=== PATIENT | female | born 1940 | race Caucasian/White ===

== ENCOUNTER 2021-09-06 08:11 | Inpatient (IN) ==
[2021-09-06] MEDS ORDERED: ACETAMINOPHEN 325 MG TABLET PO PRN (10:27)
[2021-09-06] MEDS ORDERED: SENNOSIDES 1 TABLET PO PRN (10:27)
[2021-09-06] MEDS ORDERED: LOPERAMIDE 2 MG CAPSULE PO PRN (10:27)
[2021-09-06] MEDS ORDERED: IPRATROPIUM/ALBUTEROL 3 ML AMPUL.NEB NEB PRN (10:27)
[2021-09-06] MEDS ORDERED: DEXTROSE 31 GM ORAL.SUSP PO PRN (10:27)
[2021-09-06] MEDS ORDERED: DEXTROSE 50% 50 ML VIAL IV PRN (10:27)
[2021-09-06] MEDS ORDERED: ONDANSETRON 4 MG/2 ML VIAL IV PRN (10:27)
[2021-09-06] MEDS ORDERED: LACTULOSE 20 GM/30 ML ORAL.SOL PO PRN (10:27)
--- NOTE | 2021-09-06 10:34 | Internal Med History&Physical ---
HPI History of Present Illness Patient information: Note initiated : 09/06/21 at 10:31 am Service Date, if different from initiated Date: [] Patient: Sarah Roberts 81 y/o F admitted on 09/06/21 for CHF. Chief Complaint: [shortness of breath] Chief complaint: shortness of breath History of present illness: Ms. Robetrs is a 81 year old F history of severe aortic stenosis, grade 1 diastolic CHF, s/p cardiac pacemaker placement, type 2 diabetes mellitus, essential hypertension, mixed dyslipidemia, chronic disease stage III with anemia, presenting with 1 week history of increasing degree of shortness of breath and dyspnea on exertions. She is complaining of 1 week history of increasing degree of shortness of breath and dyspnea on exertions with 10 feeds. She denies any chest pain or palpitations. She is committing of anxiety. She is committing of 5 pounds weight gain over the past 3 weeks. She is complaining of orthopnea with 2 pillows. She is committing of mild bilateral leg swellings. She presented to [facility] ED where she was being started on BiPAP as well as nitroglycerin drip. The diagnosis of CHF exacerbations and flash pulmonary edema were made based on the ground of elevated serum BNP as well as chest x-ray finding with pulmonary edema. Admission request was made to our hospital due to bed availability in the [id number]. Deena negative, [place] pending. Constitutional Constitutional: Present weakness; Absent chills, excessive sweating, fatigue or fever(s) EENT Eyes: Absent blurry vision, change in vision, loss of vision or other visual disturbances Ears: Absent decreased hearing or tinnitus Nose, mouth and throat: Absent abnormal hearing, dry mouth, headache(s), nasal congestion or sore throat Cardiovascular Cardiovascular: Present dyspnea, dyspnea on exertion, leg edema, orthopnea and pedal edema; Absent chest pain, chest pain at rest, edema, irregular heart rhythm or palpatations Respiratory Respiratory: Present dyspnea on exertion; Absent cough, dyspnea or wheezing Gastrointestinal Gastrointestinal: Absent abdominal pain, constipation, diarrhea, nausea or vomiting Musculoskeletal Musculoskeletal: Absent back pain, deformity, limited range of motion, muscle cramps, muscle weakness or numbness Integumentary Integumentary: Absent lesions, rash or wounds Neurological Neurological: Absent focal weakness, headache(s) or numbness Psychiatric Psychiatric: Absent anxiety, depression or hallucinations PFSH PFSH All Active Problems (Updated 09/06/21 @ 10:39 by Glynn Conner MD) Diastolic CHF, acute on chronic (Acute) Severe aortic stenosis (Acute) Anemia due to stage 3b chronic kidney disease (Chronic) Hyperparathyroidism (Chronic) Annual physical exam (Acute) Medicare annual wellness visit, initial (Acute) Left cervical radiculopathy (Acute) Localized edema due to fluid overload (Chronic) Chronic kidney disease (CKD) stage G3b/A1, moderately decreased glomerular filtration rate (GFR) between 30-44 mL/min/1.73 square meter and albuminuria creatinine ratio less than 30 mg/g (Chronic) DMII (diabetes mellitus, type 2) (Acute) Tinea pedis (Acute) History of esophagogastroduodenoscopy (Chronic ~01/25/20) Syncope and collapse (Acute) Vomiting (Acute) Hypotension (Acute) Aortic stenosis (Acute) RBBB (right bundle branch block) (Acute) Anemia (Acute) Hypertension in stage 3 chronic kidney disease due to type 2 diabetes mellitus (Chronic) Hypertension, essential (Chronic) Heart murmur (Chronic) Hyperlipidemia (Chronic) Anemia, blood loss (Chronic) Obesity (Chronic) Dysmetabolic syndrome X (Chronic) Arthritis (Chronic) Medical History Anemia, blood loss 5 ulcers 11/2018, Dr. Chacon. Annual physical exam Arthritis DM type 2 (diabetes mellitus, type 2) DMII (diabetes mellitus, type 2) Dysmetabolic syndrome X Heart murmur moderate aortic stenosis Hyperlipidemia Hypertension in stage 3 chronic kidney disease due to type 2 diabetes mellitus Hypertension, essential Left cervical radiculopathy Medicare annual wellness visit, initial Obesity Prediabetes Radial head fracture, closed Tinea pedis Surgical History History of esophagogastroduodenoscopy (~01/25/20) Hx of colonoscopy (12/25/14) Hx of hysterectomy S/P cataract surgery S/P knee replacement Family History brother Cardiovascular disease mother Cerebrovascular accident (CVA) Macular degeneration none listed Depression father Chronic Kidney Disease Social History marital status: frequency: 3-4 times per week smoking status: Never smoker alcohol intake frequency: holiday/special occasion only substance use type: does not use MEDS/ALLERGIES Home Medications and Allergies Home Medications Medication Instructions Recorded Confirmed Type loperamide 2 mg capsule 2 mg PO Q2-4H PRN 11/30/18 09/06/21 History (Anti-Diarrheal (loperamide)) ferrous sulfate 325 mg (65 mg 650 mg PO QDAY tab 02/01/19 09/06/21 History iron) tablet pantoprazole 40 mg tablet,delayed 40 mg PO QDAY 01/27/20 07/30/21 History release blood sugar diagnostic (True #100 each 09/20/20 07/30/21 Rx Metrix Glucose Test Strip) pravastatin 40 mg tablet 40 mg PO QHS #90 tab 03/21/21 07/30/21 Rx amlodipine 10 mg tablet (Norvasc) 10 mg PO QDAY #90 tab 05/02/21 09/06/21 Rx multivitamin 1 tab PO QAM 05/02/21 09/06/21 History torsemide 20 mg tablet 20 mg PO BID #180 tab 05/30/21 07/30/21 Rx alendronate 70 mg tablet (Fosamax) 70 mg PO QWEEK #12 tab 06/11/21 09/06/21 Rx cholecalciferol (vitamin D3) 50 50 mcg PO QDAY #90 tab 08/19/21 09/06/21 Rx mcg (2,000 unit) tablet metformin 500 mg tablet,extended 250 mg PO BID 09/06/21 09/06/21 History release 24 hr Allergies Allergy/AdvReac Type Severity Reaction Status Date / Time Amoxicillin AdvReac Mild headache Verified 07/30/21 08:12 EXAM Constitutional Vitals: Pulse Ox 100 09/06/21 09:47 General appearance: cooperative and no acute distress Head Head exam: Present atraumatic and normocephalic Eye Eye exam: Present EOMI and PERRL ENT ENT exam: Present mucous membranes moist, normal exam and normal external ear exam Additional comments: High flow nasal cannula in place Neck Neck exam: Present normal inspection; Absent lymphadenopathy, tenderness or thyromegaly Respiratory Respiratory exam: Present rhonchi; Absent accessory muscle use, respiratory distress or wheezes Cardiovascular Cardiovascular exam: Present normal rate and rhythm and systolic murmur; Absent JVD Additional comments: Pacemaker in place GI/Abdominal GI/Abdominal exam: Present normal bowel sounds and soft; Absent organomegaly or tenderness Extremities Exam Extremities exam: Present full ROM, normal capillary refill, normal inspection and pedal edema; Absent tenderness Neurological Exam Neurological exam: Present alert, CN II-XII intact and oriented X3; Absent motor sensory deficit Psychiatric Psychiatric exam: Present normal affect and normal mood; Absent anxious or depressed Skin Skin exam: Present dry and intact A/P Assessment and plan (1) Anemia due to stage 3b chronic kidney disease: Status: Chronic (2) DMII (diabetes mellitus, type 2): Status: Acute (3) Chronic kidney disease (CKD) stage G3b/A1, moderately decreased glomerular filtration rate (GFR) between 30-44 mL/min/1.73 square meter and albuminuria creatinine ratio less than 30 mg/g: Status: Chronic (4) Hypertension in stage 3 chronic kidney disease due to type 2 diabetes mellitus: Status: Chronic (5) Hyperlipidemia: Status: Chronic (6) Severe aortic stenosis: Status: Acute (7) Diastolic CHF, acute on chronic: Status: Acute Narrative A/P Narrative: Assessment and Plans: 1. Grade 1 diastolic CHF exacerbation with associated severe aortic stenosis s/p cardiac pacemaker placement: Inpatient PCU with telemetry Strict intake and output Daily weigh 2L/day fluid restriction Supplemental oxygen therapy titrate to achieve spo2>=92% currently at 10L/min Recent 2D echo showing preserved systolic function with LVEF 55-60% with grade 1 diastolic dysfunction Lasix 40mg IV BID Need cardiology follow up to discuss surgical management of the severe aortic stenosis Physical therapy Occupational therapy 2. T2DM: HgA1c Hold Metformin Correctional scale insulin AC HS Accu Chek AC HS Hypoglycemia protocol Diabetic diet 3. Essential HTN: Amlodipine Lasix 40mg IV BID d/c Nitroglycerin drip 4. Mixed dyslipidemia: Continue statin therapy 5. CKD III with associated anemia: Avoid nephrotoxic agents Saline lock CMP and cbc to trend kidney functions and H/H in the morning, respectively Iron panel, folate, and vitamin B12 level GI ppx: not currently indicated DVT ppx: Heparin Code status: Full Prognosis: guarded Disposition: Inpatient PCU with telemetry Time Spent With Patient Time: Total time spent is greater than 50% in coordination of care (as documented) at patient's floor/unit and/or counseling patient: Total time spent with greater than 50% in coordination of care (as documented) at patient's floor/unit and/or counseling patient:: Greater than 35 minutes
[2021-09-06 11:52] LABS: Hemoglobin A1C 6.4 % Hgb (4.0-6.0)
[2021-09-06] MEDS: INSULIN LISPRO 1 UNIT/0.01 ML UNIT SQ SCH ×3 (12:00→20:31)
[2021-09-06] MEDS ORDERED: FUROSEMIDE 40 MG/4 ML VIAL IV ONE (12:31)
[2021-09-06] MEDS: 0.9 % SODIUM CHLORIDE 10 ML SYRINGE IV SCH ×2 (12:54→20:32)
[2021-09-06] MEDS ORDERED: IPRATROPIUM/ALBUTEROL 3 ML AMPUL.NEB NEB ONE (14:19)
[2021-09-06] MEDS ORDERED: NITROGLYCERIN/D5W 25 MG/250 ML BOTTLE IV SCH ×2 (16:00→17:17)
[2021-09-06] MEDS ORDERED: NITROGLYCERIN/D5W 250 ML IV ONE (16:11)
[2021-09-06] MEDS: FUROSEMIDE 40 MG/4 ML VIAL IV SCH (16:34)
[2021-09-06] MEDS: 0.9 % SODIUM CHLORIDE 250 ML IV SCH (18:17)
[2021-09-06] MEDS: NITROGLYCERIN/D5W 25 MG/250 ML BOTTLE IV SCH (18:53)
[2021-09-06] MEDS: DOCUSATE SODIUM 100 MG CAPSULE PO SCH (20:26)
[2021-09-06] MEDS: HEPARIN 5,000 UNIT/ML VIAL SQ SCH (20:31)
[2021-09-06] MEDS: SIMVASTATIN 20 MG TABLET PO SCH (20:32)
[2021-09-07] MEDS: NITROGLYCERIN/D5W 25 MG/250 ML BOTTLE IV SCH ×3 (05:47→18:22)
[2021-09-07] MEDS: 0.9 % SODIUM CHLORIDE 250 ML IV SCH ×2 (05:48→18:22)
[2021-09-07] MEDS: 0.9 % SODIUM CHLORIDE 10 ML SYRINGE IV SCH ×3 (05:49→21:06)
[2021-09-07 07:04] LABS: Basophils # (Auto) 0.02 K/mcL (0.00-0.30); Basophils % (Auto) 0.2 % (0.0-2.0); Eosinophils # (Auto) 0.01 K/mcL (0.00-0.70); Eosinophils % (Auto) 0.1 % (0.0-7.0); Hematocrit 27.1 % (34.1-44.9); Hemoglobin 8.9 g/dL (11.2-15.7); Lymphocytes # (Auto) 1.41 K/mcL (1.50-4.80); Lymphocytes % (Auto) 13.5 % (15.5-49.0); Mean Cell Volume 96.8 fL (80.0-100.0); Mean Corpuscular HGB Conc 32.8 g/dL (31.0-36.0); Mean Platelet Volume 11.3 fL (7.4-10.4); Monocytes # (Auto) 0.77 K/mcL (0.10-0.90); Monocytes % (Auto) 7.4 % (1.0-12.0); Neutrophils % (Auto) 78.8 % (38.0-78.0); Platelet Count 151 K/mcL (140-440); Red Cell Distribution Width 12.5 % (11.5-14.5); WBC 10.4 K/mcL (4.5-11.0)
[2021-09-07 07:15] LABS: ALT/SGPT 12 U/L (<40); AST/SGOT 39 U/L (<32); Albumin 3.1 gm/dL (3.2-5.2); Albumin/Globulin Ratio 1.2 (1.0-2.3); Alkaline Phosphatase 53 U/L (39-117); Bilirubin,Total 0.9 mg/dL (0.1-1.0); Blood Urea Nitrogen 29 mg/dL (8-23); Calcium 7.9 mg/dL (8.6-10.4); Carbon Dioxide 24 mmol/L (22-30); Chloride 105 mmol/L (96-108); Globulin 2.6 gm/dL (2.2-3.7); Glomerular Filtration Rate 32; Glucose 133 mg/dL (70-105); Iron 13 ug/dL (37-145); Phosphorous 3.2 mg/dL (2.5-4.5); TIBC Calculation 193 ug/dl (228-428); Transferrin % Saturation 7 % (15-50)
[2021-09-07] MEDS: INSULIN LISPRO 1 UNIT/0.01 ML UNIT SQ SCH ×4 (07:33→21:01)
[2021-09-07] MEDS: FUROSEMIDE 40 MG/4 ML VIAL IV SCH ×2 (07:47→16:55)
[2021-09-07] MEDS: FERROUS SULFATE 325 MG TABLET PO SCH (07:47)
[2021-09-07] MEDS ORDERED: POLYETHYLENE GLYCOL 3350 17 GM PACKET PO PRN (08:22)
[2021-09-07] MEDS: MULTIVIT,THER IRON,CA,FA & MIN 1 TABLET PO SCH (08:52)
[2021-09-07] MEDS: VITAMIN D3 25 MCG TABLET PO SCH (08:53)
[2021-09-07] MEDS: PANTOPRAZOLE 40 MG TABLET PO SCH (08:53)
[2021-09-07] MEDS: HEPARIN 5,000 UNIT/ML VIAL SQ SCH ×2 (08:53→21:06)
--- NOTE | 2021-09-07 08:53 | Internal Med Progress Note ---
SUBJECTIVE Subjective Patient information: Note initiated : 09/07/21 at 8:51 am Service Date, if different from initiated Date: [] Patient: Sarah Roberts 81 y/o F admitted on 09/06/21 for CHF. Chief Complaint: [] Interval history: Ms. Roberts is a 81 year old F history of severe aortic stenosis, grade 1 diastolic CHF, s/p cardiac pacemaker placement, type 2 diabetes mellitus, essential hypertension, mixed dyslipidemia, chronic disease stage III with anemia, presenting with 1 week history of increasing degree of shortness of breath and dyspnea on exertions. She is complaining of 1 week history of increasing degree of shortness of breath and dyspnea on exertions with 10 feeds. She denies any chest pain or palpitations. She is committing of anxiety. She is committing of 5 pounds weight gain over the past 3 weeks. She is complaining of orthopnea with 2 pillows. She is committing of mild bilateral leg swellings. She presented to [facility] ED where she was being started on BiPAP as well as nitroglycerin drip. The diagnosis of CHF exacerbations and flash pulmonary edema were made based on the ground of elevated serum BNP as well as chest x-ray finding with pulmonary edema. Admission request was made to our hospital due to bed availability in the [id number]. Deena negative, [place] pending. 09/07: Currently on BiPAP 06/17, FiO2 30%. Was on nitroglycerin drip earlier, now off. Good urine output. Denies SOB. Denies cough sputum production or wheezing. Denies anxiety. Denies fever or chills. c/o chronic left sided chest pain. Constitutional Vitals: Vital Signs Temp Pulse Resp BP Pulse Ox 37.0 C 109 H 25 H 140/119 95 09/07/21 08:01 09/07/21 08:01 09/07/21 08:01 09/07/21 08:01 09/07/21 08:01 Period Temp Pulse Resp BP Sys/Lacey Pulse Ox Last 24 Hr 36.4 C-37.7 C 70-122 0-32 91-158/38-119 91-100 Intake and Output 09/06/21 09/07/21 09/07/21 21:59 05:59 13:59 Intake Total 239 400 Output Total 875 325 185 Balance -636 75 -185 Weight 74.644 kg Intake & Output: Intake & Output 09/06/21 09/07/21 09/07/21 21:59 05:59 13:59 Intake Total 239 400 Output Total 875 325 185 Balance -636 75 -185 Weight 74.644 kg Intake: IV 39 NITROGLYCERIN/D5W 25 mg In 250 39 ml @ 50 MCG/MIN 30 mls/hr IV . Q8H20M [facility] Rx#:[id number] Oral 200 400 Output: Urine Catheter Amount 300 325 185 Void Amount 575 Other: Urine Appearance Clear Clear Cloudy Uretheral (Thomas) Clear Urine Color Pale Bright Yellow Bright Yellow Uretheral (Thomas) Pale Urine Odor Normal General appearance: average body habitus, cooperative and no acute distress Head Head exam: Present atraumatic and normal inspection Eye Eye exam: Present normal appearance ENT ENT exam: Present mucous membranes moist, normal exam and normal external ear exam Additional comments: BiPAP in place Neck Neck exam: Present normal inspection Respiratory Respiratory exam: Present decreased breath sounds and rhonchi Cardiovascular Cardiovascular exam: Present irregular rhythm and tachycardia GI/Abdominal GI/Abdominal exam: Present normal bowel sounds Extremities Exam Extremities exam: Present pedal edema Back Exam Back exam: Present normal inspection Neurological Exam Neurological exam: Present alert and oriented X3 Skin Skin exam: Present intact and warm OBJ DATA Labs CBC & Chem 7: 09/07/21 05:27 09/07/21 05:27 Labs: Abnormal Lab Results 09/07/21 09/07/21 09/07/21 05:27 05:27 05:27 RBC 2.80 L Hgb 8.9 L Hct 27.1 L MPV 11.3 H Neut % (Auto) 78.8 H Lymph % (Auto) 13.5 L Lymph # (Auto) 1.41 L Absolute Neutrophils 8.20 H BUN 29 H Creatinine 1.5 H Glucose 133 H Hemoglobin A1c Calcium 7.9 L Iron 13 L TIBC 193 L Transferrin % Sat 7 L AST 39 H Total Protein 5.7 L Albumin 3.1 L Folate > 20.0 H 09/06/21 05:46 RBC Hgb Hct MPV Neut % (Auto) Lymph % (Auto) Lymph # (Auto) Absolute Neutrophils BUN Creatinine Glucose Hemoglobin A1c 6.4 H Calcium Iron TIBC Transferrin % Sat AST Total Protein Albumin Folate Meds: Medications Acetaminophen (Acetaminophen 325 Mg Tablet) 650 mg PO Q6HP PRN; Protocol PRN Reason: Per Pain Protocol/Fever > 101 Albuterol/Ipratropium (Ipratropium/Albuterol 3 Ml Ampul.Neb) 3 ml NEB Q4HRT PRN PRN Reason: Wheezing Amlodipine Besylate (Amlodipine 10 Mg Tablet) 10 mg PO QDAY [facility] Dextrose (Dextrose 50% 50 Ml Vial) 0 ml IV UD PRN PRN Reason: Hypoglycemia Diagnostic Test (Pha) (Accu-Chek 1 Each Strip) 1 each FS [facility] Last Admin: 09/07/21 07:32 Dose: 1 each Documented by: Docusate Sodium (Docusate Sodium 100 Mg Capsule) 100 mg PO BID [facility] Last Admin: 09/06/21 20:26 Dose: Not Given Documented by: Ferrous Sulfate (Ferrous Sulfate 325 Mg Tablet) [facility] Admin: 09/07/21 07:47 Dose: 650 mg Documented by: Furosemide (Furosemide 40 Mg/4 Ml Vial) 40 mg IV BIDD [facility] Last Admin: 09/07/21 07:47 Dose: 40 mg Documented by: Glucose (Dextrose 31 Gm Oral.Susp) 15 gm PO PRN PRN PRN Reason: Hypoglycemia Heparin Sodium (Porcine) (Heparin 5,000 Unit/Ml Vial) 5,000 unit SQ Q12 [facility] Last Admin: 09/06/21 20:31 Dose: 5,000 unit Documented by: Sodium Chloride (Sodium Chloride 0.9%) 250 mls @ 20 mls/hr IV .[id number] [facility] Last Admin: 09/07/21 05:48 Dose: Not Given Documented by: Nitroglycerin/Dextrose (Nitroglycerin/D5w) 25 mg in 250 mls @ 30 mls/hr IV . Q8H20M [facility]; Protocol Last Admin: 09/07/21 05:47 Dose: Not Given Documented by: Insulin Human Lispro (Insulin Lispro 1 Unit/0.01 Ml Unit) 0 unit SQ [facility]; Protocol Last Admin: 09/07/21 07:33 Dose: Not Given Documented by: Iron Carb/Multivit/Wimer/Folic Acid (Multivit,Ther Iron,Ca,Fa & Min 1 Tablet) 1 tab PO DAILY [facility] Lactulose (Lactulose 20 Gm/30 Ml Oral.Elzbieta) 10 gm PO DAILYP PRN PRN Reason: Constipation Loperamide HCl (Loperamide 2 Mg Capsule) 2 mg PO Q2-4HP PRN PRN Reason: Diarrhea Ondansetron HCl (Ondansetron 4 Mg/2 Ml Vial) 4 mg IV Q4HP PRN; Protocol PRN Reason: Nausea And Vomiting Pantoprazole Sodium (Pantoprazole 40 Mg Tablet) 40 mg PO QDAY [facility] Polyethylene Glycol (Polyethylene Glycol 3350 17 Gm Packet) 17 gm PO DAILYP PRN PRN Reason: Constipation Senna (Sennosides 1 Tablet) 2 tab PO HSP PRN PRN Reason: Constipation Simvastatin (Simvastatin 20 Mg Tablet) 20 mg PO HS [facility] Last Admin: 09/06/21 20:32 Dose: 20 mg Documented by: Sodium Chloride (0.9 % Sodium Chloride 10 Ml Syringe) 10 ml IV Q8 [facility] Last Admin: 09/07/21 05:49 Dose: 10 ml Documented by: Vitamin D (Vitamin D3 25 Mcg Tablet) 50 mcg PO DAILY [facility] A/P Assessment and plan (1) Anemia due to stage 3b chronic kidney disease: Status: Chronic (2) DMII (diabetes mellitus, type 2): Status: Acute (3) Chronic kidney disease (CKD) stage G3b/A1, moderately decreased glomerular filtration rate (GFR) between 30-44 mL/min/1.73 square meter and albuminuria creatinine ratio less than 30 mg/g: Status: Chronic (4) Hypertension in stage 3 chronic kidney disease due to type 2 diabetes pj litus: Status: Chronic (5) Hyperlipidemia: Status: Chronic (6) Severe aortic stenosis: Status: Acute (7) Diastolic CHF, acute on chronic: Status: Acute Narrative A/P Narrative: Assessment and Plans: 1. Grade 1 diastolic CHF exacerbation with associated severe aortic stenosis s/p cardiac pacemaker placement: Inpatient ICU with telemetry Strict intake and output Daily weigh 2L/day fluid restriction Supplemental oxygen therapy titrate to achieve spo2>=92% currently on BiPAP 12/6 cmH2O, FiO2 30% Recent 2D echo showing preserved systolic function with LVEF 55-60% with grade 1 diastolic dysfunction Lasix 40mg IV BID Nitroglycerin drip as needed for flesh pneumonia Need cardiology follow up to discuss surgical management of the severe aortic stenosis Physical therapy Occupational therapy 2. T2DM: HgA1c Hold Metformin Correctional scale insulin AC HS Accu Chek AC Hypoglycemia protocol Diabetic diet 3. Essential HTN: Amlodipine Lasix 40mg IV BID Nitroglycerin drip as needed for flesh pneumonia 4. Mixed dyslipidemia: Continue statin therapy 5. CKD III with associated anemia: Avoid nephrotoxic agents Saline lock CMP and cbc to trend kidney functions and H/H in the morning, respectively Iron panel, folate, and vitamin B12 level GI ppx: not currently indicated DVT ppx: Heparin Code status: Full Prognosis: guarded Disposition: Inpatient ICU Critical Care Time: 45min Time Spent With Patient Time: Total time spent is greater than 50% in coordination of care (as documented) at patient's floor/unit and/or counseling patient: Total time spent with greater than 50% in coordination of care (as documented) at patient's floor/unit and/or counseling patient:: Greater than 35 minutes QUALITY VTE Deep Vein Thrombosis/Pulmonary Embolism Present on Admission: No
[2021-09-07] MEDS: DOCUSATE SODIUM 100 MG CAPSULE PO SCH ×2 (09:08→20:52)
[2021-09-07] MEDS: amLODIPine 10 MG TABLET PO SCH (09:09)
--- NOTE | 2021-09-07 17:38 | Internal Med Progress Note ---
SUBJECTIVE Subjective Patient information: Note initiated : 09/07/21 at 5:37 pm Service Date, if different from initiated Date: [] Patient: Sarah Roberts 81 y/o F admitted on 09/06/21 for CHF. Chief Complaint: [] Interval history: Ms. Roberts is a 81 year old F history of severe aortic stenosis, grade 1 diastolic CHF, s/p cardiac pacemaker placement, type 2 diabetes mellitus, essential hypertension, mixed dyslipidemia, chronic disease stage III with anemia, presenting with 1 week history of increasing degree of shortness of breath and dyspnea on exertions. She is complaining of 1 week history of increasing degree of shortness of breath and dyspnea on exertions with 10 feeds. She denies any chest pain or palpitations. She is committing of anxiety. She is committing of 5 pounds weight gain over the past 3 weeks. She is complaining of orthopnea with 2 pillows. She is committing of mild bilateral leg swellings. She presented to [facility] ED where she was being started on BiPAP as well as nitroglycerin drip. The diagnosis of CHF exacerbations and flash pulmonary edema were made based on the ground of elevated serum BNP as well as chest x-ray finding with pulmonary edema. Admission request was made to our hospital due to bed availability in the [id number]. Deena negative, [place] pending. 09/07: Currently on BiPAP 12/, FiO2 30%. Was on nitroglycerin drip earlier, now off. Good urine output. Denies SOB. Denies cough sputum production or wheezing. Denies anxiety. Denies fever or chills. c/o chronic left sided chest pain. 09/08 Unable to wean off NIV, the patient was able to wean from BiPAP to CPAP today. Discussed with [facility], the patient was accepted for transfer for cardiology evaluation of severe aortic stenosis and possible expedited TAVR workup. Continue Lasix 40 mg IV BID today. Physical Exam Head: Atraumatic, normal inspection. Eyes: normal appearance, no scleral icterus. Neck: full ROM Respiratory: On BiPAP, no respiratory distress. Cardiovascular: normal rate and rhythm, S1, faintS2 GI/Abdominal: soft, nontender, no guarding. Extremities: Nonpitting bilateral lower extremity edema full range of motion, nontender. Neurological: CN II-XII intact, intact motor, intact sensation. Psychiatric: normal mood. Skin: warm, normal color Constitutional Vitals: Vital Signs Temp Pulse Resp BP Pulse Ox 98.5 F 97 H 23 H 131/60 95 09/07/21 16:01 09/07/21 17:01 09/07/21 17:01 09/07/21 17:01 09/07/21 17:01 Period Temp Pulse Resp BP Sys/Lacey Pulse Ox Last 24 Hr 98.0 F-98.6 F 70-109 0-36 91-140/38-119 95-100 Intake and Output 09/07/21 09/07/21 09/07/21 05:59 13:59 21:59 Intake Total 400 240 450 Output Total 325 524 149 Balance 75 -284 301 Weight 74.644 kg Patient Weight 09/08/21 05:59 Weight 74.644 kg Intake & Output: Intake & Output 09/07/21 09/07/21 09/07/21 05:59 13:59 21:59 Intake Total 400 240 450 Output Total 325 524 149 Balance 75 -284 301 Weight 74.644 kg Intake: Oral 400 240 450 Output: Urine Catheter Amount 325 524 149 Other: Meal Breakfast Lunch Percent of Meal Consumed 75% Feeding Ability Independent Independent Urine Appearance Clear Clear Clear Uretheral (Thomas) Clear Urine Color Bright Yellow Bright Yellow Bright Yellow Uretheral (Thomas) Pale Urine Odor Normal OBJ DATA Labs CBC & Chem 7: 09/08/21 05:23 09/08/21 05:23 Labs: Abnormal Lab Results 09/07/21 09/07/21 09/07/21 05:27 05:27 05:27 RBC 2.80 L Hgb 8.9 L Hct 27.1 L MPV 11.3 H Neut % (Auto) 78.8 H Lymph % (Auto) 13.5 L Lymph # (Auto) 1.41 L Absolute Neutrophils 8.20 H BUN 29 H Creatinine 1.5 H Glucose 133 H Hemoglobin A1c Calcium 7.9 L Iron 13 L TIBC 193 L Transferrin % Sat 7 L AST 39 H Total Protein 5.7 L Albumin 3.1 L Folate > 20.0 H 09/06/21 05:46 RBC Hgb Hct MPV Neut % (Auto) Lymph % (Auto) Lymph # (Auto) Absolute Neutrophils BUN Creatinine Glucose Hemoglobin A1c 6.4 H Calcium Iron TIBC Transferrin % Sat AST Total Protein Albumin Folate Meds: Medications Acetaminophen (Acetaminophen 325 Mg Tablet) 650 mg PO Q6HP PRN; Protocol PRN Reason: Per Pain Protocol/Fever > 101 Albuterol/Ipratropium (Ipratropium/Albuterol 3 Ml Ampul.Neb) 3 ml NEB Q4HRT PRN PRN Reason: Wheezing Amlodipine Besylate (Amlodipine 10 Mg Tablet) 10 mg PO QDAY ON LICENSE OF [facility] Last Admin: 09/07/21 09:09 Dose: Not Given Documented by: Dextrose (Dextrose 50% 50 Ml Vial) 0 ml IV UD PRN PRN Reason: Hypoglycemia Diagnostic Test (Pha) (Accu-Chek 1 Each Strip) 1 each FS [facility] ON LICENSE OF [facility] Last Admin: 09/07/21 17:07 Dose: 1 each Documented by: Docusate Sodium (Docusate Sodium 100 Mg Capsule) 100 mg PO BID ON LICENSE OF [facility] Last Admin: 09/07/21 09:08 Dose: Not Given Documented by: Ferrous Sulfate (Ferrous Sulfate 325 Mg Tablet) 650 mg PO [facility] [place] Last Admin: 09/07/21 07:47 Dose: 650 mg Documented by: Furosemide (Furosemide 40 Mg/4 Ml Vial) 40 mg IV BIDD ON LICENSE OF [facility] Last Admin: 09/07/21 16:55 Dose: 40 mg Documented by: Glucose (Dextrose 31 Gm Oral.Susp) 15 gm PO PRN PRN PRN Reason: Hypoglycemia Heparin Sodium (Porcine) (Heparin 5,000 Unit/Ml Vial) 5,000 unit SQ Q12 ON LICENSE OF [facility] Last Admin: 09/07/21 08:53 Dose: 5,000 unit Documented by: Sodium Chloride (Sodium Chloride 0.9%) 250 mls @ 20 mls/hr IV .[id number] ON LICENSE OF [facility] Last Admin: 09/07/21 05:48 Dose: Not Given Documented by: Nitroglycerin/Dextrose (Nitroglycerin/D5w) 25 mg in 250 mls @ 30 mls/hr IV . Q8H20M ON LICENSE OF [facility]; Protocol Last Admin: 09/07/21 16:13 Dose: Not Given Documented by: Insulin Human Lispro (Insulin Lispro 1 Unit/0.01 Ml Unit) 0 unit SQ [facility]; Protocol Last Admin: 09/07/21 17:07 Dose: 4 unit Documented by: Iron Carb/Multivit/[place]/Folic Acid (Multivit,Ther Iron,Ca,Fa & Min 1 Tablet) 1 tab PO DAILY ON LICENSE OF [facility] Last Admin: 09/07/21 08:52 Dose: 1 tab Documented by: Lactulose (Lactulose 20 Gm/30 Ml Oral.Elzbieta) 10 gm PO DAILYP PRN PRN Reason: Constipation Loperamide HCl (Loperamide 2 Mg Capsule) 2 mg PO Q2-4HP PRN PRN Reason: Diarrhea Ondansetron HCl (Ondansetron 4 Mg/2 Ml Vial) 4 mg IV Q4HP PRN; Protocol PRN Reason: Nausea And Vomiting Pantoprazole Sodium (Pantoprazole 40 Mg Tablet) 40 mg PO QDAY ON LICENSE OF [facility] Last Admin: 09/07/21 08:53 Dose: 40 mg Documented by: Polyethylene Glycol (Polyethylene Glycol 3350 17 Gm Packet) 17 gm PO DAILYP PRN PRN Reason: Constipation Senna (Sennosides 1 Tablet) 2 tab PO HSP PRN PRN Reason: Constipation Simvastatin (Simvastatin 20 Mg Tablet) 20 mg PO HS ON LICENSE OF [facility] Last Admin: 09/06/21 20:32 Dose: 20 mg Documented by: Sodium Chloride (0.9 % Sodium Chloride 10 Ml Syringe) 10 ml IV Q8 ON LICENSE OF [facility] Last Admin: 09/07/21 14:00 Dose: 10 ml Documented by: Vitamin D (Vitamin D3 25 Mcg Tablet) 50 mcg PO DAILY ON LICENSE OF [facility] Last Admin: 09/07/21 08:53 Dose: 50 mcg Documented by: A/P Narrative A/P Narrative: Assessment: 81 year old F history of severe aortic stenosis, grade 1 diastolic CHF, s/p cardiac pacemaker placement, type 2 diabetes mellitus, essential hypertension, mixed dyslipidemia, chronic disease stage III with anemia admitted for acute on chronic diastolic heart failure. #Acute on chronic diastolic heart failure #Severe aortic stenosis #Chronic kidney disease stage III #Type 2 diabetes mellitus #Essential hypertension #Hyperlipidemia #Status post permanent cardiac pacemaker #Obesity Plan -Continue Lasix 40 mg IV twice daily. -Oxygen supplementation, wean off NIV if possible -Monitor renal function, electrolytes, urine output. -TTE ordered. -Continue essential home medications. -bus driver/monitor. -DVT prophylaxis: Heparin SQ -CODE STATUS: Full -Disposition: The patient is on a waiting list for transfer to [facility] for urgent evaluation for TAVR. Time Spent With Patient Time: Total time spent is greater than 50% in coordination of care (as documented) at patient's floor/unit and/or counseling patient: QUALITY VTE Deep Vein Thrombosis/Pulmonary Embolism Present on Admission: No
[2021-09-07] MEDS: SIMVASTATIN 20 MG TABLET PO SCH (21:05)
[2021-09-08] MEDS: NITROGLYCERIN/D5W 25 MG/250 ML BOTTLE IV SCH ×2 (03:22→15:16)
[2021-09-08] MEDS: 0.9 % SODIUM CHLORIDE 10 ML SYRINGE IV SCH ×3 (05:34→20:37)
[2021-09-08] MEDS: 0.9 % SODIUM CHLORIDE 250 ML IV SCH ×2 (05:35→20:27)
[2021-09-08 07:01] LABS: Basophils # (Auto) 0.04 K/mcL (0.00-0.30); Basophils % (Auto) 0.4 % (0.0-2.0); Eosinophils # (Auto) 0.04 K/mcL (0.00-0.70); Eosinophils % (Auto) 0.4 % (0.0-7.0); Hematocrit 29.1 % (34.1-44.9); Hemoglobin 9.3 g/dL (11.2-15.7); Lymphocytes # (Auto) 1.79 K/mcL (1.50-4.80); Lymphocytes % (Auto) 18.7 % (15.5-49.0); Mean Cell Volume 99.3 fL (80.0-100.0); Mean Platelet Volume 11.3 fL (7.4-10.4); Monocytes # (Auto) 0.67 K/mcL (0.10-0.90); Neutrophils % (Auto) 73.5 % (38.0-78.0); Platelet Count 159 K/mcL (140-440); RBC 2.93 M/mcL (3.59-5.38); Red Cell Distribution Width 12.5 % (11.5-14.5); WBC 9.6 K/mcL (4.5-11.0)
[2021-09-08] MEDS: INSULIN LISPRO 1 UNIT/0.01 ML UNIT SQ SCH ×4 (07:14→20:36)
[2021-09-08 07:34] LABS: ALT/SGPT 10 U/L (<40); AST/SGOT 23 U/L (<32); Alkaline Phosphatase 59 U/L (39-117); Bilirubin,Direct 0.2 mg/dL (<0.3); Bilirubin,Total 0.9 mg/dL (0.1-1.0); Blood Urea Nitrogen 30 mg/dL (8-23); Calcium 8.4 mg/dL (8.6-10.4); Carbon Dioxide 22 mmol/L (22-30); Chloride 102 mmol/L (96-108); Glomerular Filtration Rate 32; Glucose 123 mg/dL (70-105); Lactate Dehydrogenase 254 U/L (135-225); Phosphorous 2.3 mg/dL (2.5-4.5); Triglycerides 91 mg/dL (<150); Uric Acid 8.5 mg/dL (2.5-8.0)
[2021-09-08] MEDS: FUROSEMIDE 40 MG/4 ML VIAL IV SCH ×2 (08:01→15:44)
[2021-09-08] MEDS: DOCUSATE SODIUM 100 MG CAPSULE PO SCH ×2 (08:01→20:36)
[2021-09-08] MEDS: FERROUS SULFATE 325 MG TABLET PO SCH (08:01)
[2021-09-08] MEDS: HEPARIN 5,000 UNIT/ML VIAL SQ SCH ×2 (08:01→20:35)
[2021-09-08] MEDS: PANTOPRAZOLE 40 MG TABLET PO SCH (08:01)
[2021-09-08] MEDS: MULTIVIT,THER IRON,CA,FA & MIN 1 TABLET PO SCH (08:01)
[2021-09-08] MEDS: VITAMIN D3 25 MCG TABLET PO SCH (09:20)
[2021-09-08] MEDS: amLODIPine 10 MG TABLET PO SCH (11:37)
--- NOTE | 2021-09-08 15:46 | XRay Report ---
CLINICAL INFORMATION: Hypoxia COMPARISON: 06/10/2019 TECHNIQUE: Portable FINDINGS: The heart is borderline enlarged. Pacemaker leads in stable satisfactory position. Mediastinum and pulmonary vessels are normal. Large patchy infiltrate has developed in the right lung with moderate patchy infiltrate in the left mid and lower lung. Small bilateral pleural effusions noted. IMPRESSION: Large diffuse right lung and moderate left mid last lower lung infiltrates. Consider infection or aspiration Interpreted and Authenticated by: Balbir Galeano 09/08/21
[2021-09-08] MEDS: SIMVASTATIN 20 MG TABLET PO SCH (20:36)
[2021-09-09] MEDS: 0.9 % SODIUM CHLORIDE 10 ML SYRINGE IV SCH ×2 (05:45→14:27)
[2021-09-09 06:38] LABS: Basophils # (Auto) 0.03 K/mcL (0.00-0.30); Basophils % (Auto) 0.4 % (0.0-2.0); Eosinophils # (Auto) 0.22 K/mcL (0.00-0.70); Hematocrit 27.8 % (34.1-44.9); Lymphocytes # (Auto) 1.35 K/mcL (1.50-4.80); Lymphocytes % (Auto) 18.7 % (15.5-49.0); Mean Cell Volume 95.5 fL (80.0-100.0); Mean Corpuscular HGB Conc 32.4 g/dL (31.0-36.0); Mean Platelet Volume 11.1 fL (7.4-10.4); Monocytes # (Auto) 0.58 K/mcL (0.10-0.90); Neutrophils % (Auto) 69.9 % (38.0-78.0); Platelet Count 186 K/mcL (140-440); RBC 2.91 M/mcL (3.59-5.38); Red Cell Distribution Width 12.1 % (11.5-14.5); WBC 7.2 K/mcL (4.5-11.0)
[2021-09-09 07:15] LABS: ALT/SGPT 10 U/L (<40); AST/SGOT 16 U/L (<32); Alkaline Phosphatase 61 U/L (39-117); Bilirubin,Direct 0.2 mg/dL (<0.3); Bilirubin,Total 0.7 mg/dL (0.1-1.0); Blood Urea Nitrogen 28 mg/dL (8-23); Calcium 8.6 mg/dL (8.6-10.4); Carbon Dioxide 24 mmol/L (22-30); Chloride 104 mmol/L (96-108); Globulin 2.9 gm/dL (2.2-3.7); Glomerular Filtration Rate 38; Glucose 127 mg/dL (70-105); Lactate Dehydrogenase 208 U/L (135-225); Phosphorous 2.4 mg/dL (2.5-4.5); Triglycerides 111 mg/dL (<150); Uric Acid 8.3 mg/dL (2.5-8.0)
[2021-09-09] MEDS: 0.9 % SODIUM CHLORIDE 250 ML IV SCH (07:50)
[2021-09-09] MEDS: FUROSEMIDE 40 MG/4 ML VIAL IV SCH (07:59)
[2021-09-09] MEDS: INSULIN LISPRO 1 UNIT/0.01 ML UNIT SQ SCH ×2 (08:00→12:09)
[2021-09-09] MEDS: FERROUS SULFATE 325 MG TABLET PO SCH (08:00)
[2021-09-09] MEDS: PANTOPRAZOLE 40 MG TABLET PO SCH (08:06)
--- NOTE | 2021-09-09 08:56 | XRay Report ---
HISTORY: Follow-up pulmonary infiltrates after diuresis FINDINGS: There are large diffuse alveolar infiltrates throughout both lungs. These did not improve following the diuresis. This is more likely due to an inflammatory reaction rather than pulmonary edema. The heart remains mildly enlarged. There is a dual-chamber pacemaker. Small left-side pleural effusion is present. IMPRESSION: Persistent large bilateral alveolar infiltrates with no improvement following diuresis Interpreted and Authenticated by: Brian Vazquez 09/09/21
[2021-09-09] MEDS: HEPARIN 5,000 UNIT/ML VIAL SQ SCH (09:35)
[2021-09-09] MEDS: MULTIVIT,THER IRON,CA,FA & MIN 1 TABLET PO SCH (09:36)
[2021-09-09] MEDS: VITAMIN D3 25 MCG TABLET PO SCH (09:36)
[2021-09-09] MEDS: DOCUSATE SODIUM 100 MG CAPSULE PO SCH (09:36)
--- NOTE | 2021-09-09 12:25 | Discharge Summary ---
Discharge Provider Provider Patient information: Note initiated : 09/09/21 at 12:17 pm Service Date, if different from initiated Date: [] Patient: Sarah Roberts 81 y/o F admitted on 09/06/21 for CHF. Chief Complaint: [] Date of admission: 09/06/21 09:33 Discharge date: 09/09/21 Primary care physician: Collins Sabillon MD Discharge Meds Discharge Medications Home Medications loperamide 2 mg capsule (Anti-Diarrheal (loperamide)) 2 mg PO Q2-4H PRN 11/30/18 [History Confirmed 09/06/21 Last Taken 09/05/21 06:00] ferrous sulfate 325 mg (65 mg iron) tablet 650 mg PO QDAY tab 02/01/19 [History Confirmed 09/06/21 Last Taken 09/05/21 20:00] pantoprazole 40 mg tablet,delayed release 40 mg PO QDAY 01/27/20 [History Confirmed 09/06/21 Last Taken 09/05/21 05:00] blood sugar diagnostic (True Metrix Glucose Test Strip) #100 each 09/20/20 [Rx Confirmed 09/06/21 Last Taken Unknown] pravastatin 40 mg tablet 40 mg PO QHS #90 tab 03/21/21 [Rx Confirmed 09/06/21 Last Taken 09/05/21 20:00] amlodipine 10 mg tablet (Norvasc) 10 mg PO QDAY #90 tab 05/02/21 [Rx Confirmed 09/06/21 Last Taken 09/05/21 20:00] multivitamin 1 tab PO QAM 05/02/21 [History Confirmed 09/06/21 Last Taken 09/05/21 08:00] torsemide 20 mg tablet 20 mg PO BID #180 tab 05/30/21 [Rx Confirmed 09/06/21 Last Taken 09/05/21 07:00] alendronate 70 mg tablet (Fosamax) 70 mg PO QWEEK #12 tab 06/11/21 [Rx Confirmed 09/06/21 Last Taken 08/31/21 05:00] cholecalciferol (vitamin D3) 50 mcg (2,000 unit) tablet 50 mcg PO QDAY #90 tab 08/19/21 [Rx Confirmed 09/06/21 Last Taken 09/05/21 20:00] metformin 500 mg tablet,extended release 24 hr 250 mg PO BID 09/06/21 [History Confirmed 09/06/21 Last Taken 09/05/21 20:00] COURSE Hospital Course Hospital course: Ms. Roberts is a 81 year old F history of severe aortic stenosis, grade 1 diastolic CHF, s/p cardiac pacemaker placement, type 2 diabetes mellitus, essential hypertension, mixed dyslipidemia, chronic disease stage III with anemia, presenting with 1 week history of increasing degree of shortness of breath and dyspnea on exertions. She is complaining of 1 week history of increasing degree of shortness of breath and dyspnea on exertions with 10 feeds. She denies any chest pain or palpitations. She is committing of anxiety. She is committing of 5 pounds weight gain over the past 3 weeks. She is complaining of orthopnea with 2 pillows. She is committing of mild bilateral leg swellings. She presented to [facility] ED where she was being started on BiPAP as well as nitroglycerin drip. The diagnosis of CHF exacerbations and flash pulmonary edema were made based on the ground of elevated serum BNP as well as chest x-ray finding with pulmonary edema. Admission request was made to our hospital due to bed availability in the [id number]. Deena negative, [place] pending. 09/07: Currently on BiPAP /, FiO2 30%. Was on nitroglycerin drip earlier, now off. Good urine output. Denies SOB. Denies cough sputum production or wheezing. Denies anxiety. Denies fever or chills. c/o chronic left sided chest pain. 09/08 Unable to wean off NIV today however the patient was able to wean from BiPAP to CPAP today. Has not required nitroglycerin infusion today. Discussed with [facility], the patient was accepted for transfer for cardiology evaluation of severe aortic stenosis and possible expedited TAVR workup. No beds currently available, the patient was placed on a waiting list at [place]. Continue Lasix 40 mg IV BID today. 09/09 The patient is doing significantly better today, was able to wean of CPAP to 3 L/min nasal oxygen. Renal function and electrolytes stable. Hemoglobin trend stable although overall lower than prior to admission baseline. Continuing with Lasix 40 mg IV BID today. Received a call from [facility] transfer center and spoke with hospital medicine and provided an update on the patient's clinical status. The patient was accepted to intermediate care at [place]. Prior to admission home medications continued in discharge orders for reference at [place]. Will transfer with mccullough catheter. Physical Exam Head: Atraumatic, normal inspection. Eyes: normal appearance, no scleral icterus. Neck: full ROM Respiratory: nasal canula oxygen. no respiratory distress. Cardiovascular: normal rate and rhythm, holosystolic murmur. GI/Abdominal: soft, nontender, no guarding. Extremities: Nonpitting bilateral lower extremity edema full range of motion, nontender. Neurological: CN II-XII intact, intact motor, intact sensation. Psychiatric: normal mood. Skin: warm, normal color Constitutional Vitals: Discharge diagnosis: Acute on chronic diastolic heart failure Secondary discharge diagnosis: Severe aortic stenosis Time Spent with Patient Time attestation: Total time spent providing and/or coordinating discharge services: EXAM Constitutional Vitals: Temp Pulse Resp BP Pulse Ox 97.4 F 88 19 140/106 95 09/09/21 12:01 09/09/21 09:05 09/09/21 12:10 09/09/21 12:01 09/09/21 12:01 Discharge Data Data Completed and Pending Labs on day of discharge: Labs from last 24 hours 09/09/21 09/09/21 05:24 05:24 WBC 7.2 RBC 2.91 L Hgb 9.0 L Hct 27.8 L MCV 95.5 MCH 30.9 MCHC 32.4 RDW 12.1 Plt Count 186 MPV 11.1 H Neut % (Auto) 69.9 Lymph % (Auto) 18.7 [place] % (Auto) 8.0 Eos % (Auto) 3.0 Baso % (Auto) 0.4 Lymph # (Auto) 1.35 L [place] # (Auto) 0.58 Eos # (Auto) 0.22 Baso # (Auto) 0.03 Absolute Neutrophils 5.05 Sodium 140 Potassium 3.8 Chloride 104 Carbon Dioxide 24 Anion Gap 12.0 BUN 28 H Creatinine 1.3 H GFR Calculation 38 Glucose 127 H Uric Acid 8.3 H Calcium 8.6 Phosphorus 2.4 L Magnesium 2.4 Total Bilirubin 0.7 Direct Bilirubin 0.2 GGT 10 AST 16 ALT 10 Alkaline Phosphatase 61 Lactate Dehydrogenase 208 Total Protein 5.9 Albumin 3.0 L Globulin 2.9 Albumin/Globulin Ratio 1.0 Triglycerides 111 Discharge Plan Patient/Caregiver Discharge Instructions Activity: increase activity as tolerated Diet: Low Sodium (2gm) and Consistent Carbohydrate Prescriptions: Continued (DME) True Metrix Glucose Test Strip Strip See Dose Instructions .ROUTE .MEDSUPPLY Qty: 100 3RF Dose Instruction: As directed Rx Instructions: As directed to test BG once daily pravastatin 40 mg tablet 40 mg PO QHS Qty: 90 1RF amlodipine [Norvasc] 10 mg tablet 10 mg PO QDAY Qty: 90 1RF alendronate [Fosamax] 70 mg tablet 70 mg PO QWEEK Qty: 12 1RF Rx Instructions: Fridays cholecalciferol (vitamin D3) 50 mcg (2,000 unit) tablet 50 mcg PO QDAY Qty: 90 4RF loperamide [Anti-Diarrheal (loperamide)] 2 mg capsule 2 mg PO Q2-4H PRN (Reason: Diarrhea) 0RF ferrous sulfate 325 mg (65 mg iron) tablet 650 mg PO QDAY 0RF pantoprazole 40 mg tablet,delayed release (DR/EC) 40 mg PO QDAY 0RF multivitamin Tablet 1 tab PO QAM 0RF torsemide 20 mg tablet 20 mg PO BID Qty: 180 3RF Rx Instructions: 20 mg in am and 20 mg at noon metformin 500 mg tablet extended release 24 hr 250 mg PO BID 0RF Follow Up Plan Patient Disposition: [facility] Overall status at discharge: patient is not back to baseline Discharge Orders: Discharge Order (Routine); Ordered 09/09/21 Ordered By: Oneal RAMIREZ VTE Deep Vein Thrombosis/Pulmonary Embolism Present on Admission: No
== END 2021-09-09 14:27 | disposition short-term general hospital (02) | DRG 291 ==
LOC: ICU 09:33
PROVIDERS: ADMIT Internal Medicine; ATTEND Internal Medicine

== ENCOUNTER 2024-10-16 11:20 | Inpatient (IN) ==
[2024-10-16] MEDS: 0.9 % SODIUM CHLORIDE 500 ML IV ONE (11:50)
[2024-10-16 12:38] LABS: Appearance,Urine CLEAR (Clear); Bacteria,Urine MOD /hpf (0); Bilirubin,Urine Negative (Negative); Color,Urine YELLOW; Glucose,Urine (UA) Negative (Negative); Ketones,Urine Negative (Negative); Leukocyte Esterase,Urine 25 /uL (Negative); Nitrate,Urine Negative (Negative); Protein,Urine Negative (Negative); Specific Gravity,Urine 1.009 (1.000-1.035); Urine Blood Negative (Negative); Urine RBC 0 /hpf (0-3); Urine Squamous Epithelial Cell 0 /hpf (0-4); Urine WBC 6 /hpf (0-4); Urobilinogen,Urine Negative
[2024-10-16 13:32] LABS: Basophils # (Auto) 0.01 K/mcL (0.00-0.30); Basophils % (Auto) 0.1 % (0.0-2.0); Eosinophils # (Auto) 0.01 K/mcL (0.00-0.70); Eosinophils % (Auto) 0.1 % (0.0-7.0); Hematocrit 46.2 % (34.1-44.9); Hemoglobin 13.6 g/dL (11.2-15.7); Lymphocytes # (Auto) 1.27 K/mcL (1.50-4.80); Lymphocytes % (Auto) 11.3 % (15.5-49.0); Mean Cell Volume 100.4 fL (80.0-100.0); Mean Corpuscular HGB Conc 29.4 g/dL (31.0-36.0); Mean Platelet Volume 10.3 fL (8.8-12.5); Monocytes # (Auto) 1.09 K/mcL (0.10-0.90); Monocytes % (Auto) 9.7 % (1.0-12.0); Neutrophils % (Auto) 78.7 % (38.0-78.0); Platelet Count 176 K/mcL (140-440); Red Cell Distribution Width 15.2 % (11.5-14.5); WBC 11.3 K/mcL (4.5-11.0)
[2024-10-16 13:56] LABS: Creatine Kinase 120 U/L (24-170)
[2024-10-16 14:02] LABS: ALT/SGPT 19 U/L (<40); AST/SGOT 25 U/L (<32); Albumin 3.6 gm/dL (3.2-5.2); Albumin/Globulin Ratio 1.1 (1.0-2.3); Alkaline Phosphatase 104 U/L (39-117); Blood Urea Nitrogen 79 mg/dL (8-23); Calcium 9.6 mg/dL (8.6-10.4); Carbon Dioxide 21 mmol/L (22-30); Chloride 103 mmol/L (96-108); Globulin 3.2 gm/dL (2.2-3.7); Glomerular Filtration Rate 17; Glucose 148 mg/dL (70-105); Potassium 4.2 mmol/L (3.3-5.1); Sodium 140 mmol/L (133-145)
[2024-10-16] MEDS: cefTRIAXone 1 GM VIAL IV ONE (18:37)
[2024-10-16] MEDS ORDERED: DEXTROSE 31 GM ORAL.SUSP PO PRN (20:54)
[2024-10-16] MEDS ORDERED: ONDANSETRON 4 MG/2 ML VIAL IV PRN (20:54)
[2024-10-16] MEDS ORDERED: DEXTROSE 50% 50 ML VIAL IV PRN (20:54)
[2024-10-16] MEDS ORDERED: ACETAMINOPHEN 325 MG TABLET PO PRN (20:54)
[2024-10-16] MEDS ORDERED: DEXTROSE 50% 50 ML SYRINGE IV PRN (21:01)
[2024-10-16] MEDS: SENNOSIDES 1 TABLET PO SCH (21:22)
[2024-10-16] MEDS: APIXABAN 2.5 MG TABLET PO SCH (21:23)
[2024-10-16] MEDS: 0.9 % SODIUM CHLORIDE 10 ML SYRINGE IV SCH (21:23)
[2024-10-16] MEDS: DOCUSATE SODIUM 100 MG CAPSULE PO SCH (21:23)
[2024-10-16] MEDS: DOXYCYCLINE HYCLATE 100 MG TABLET.ORL PO SCH (21:23)
[2024-10-16] MEDS: INSULIN LISPRO 1 UNIT/0.01 ML UNIT SQ SCH (22:35)
[2024-10-17 05:53] LABS: Basophils # (Auto) 0.02 K/mcL (0.00-0.30); Basophils % (Auto) 0.2 % (0.0-2.0); Eosinophils # (Auto) 0.04 K/mcL (0.00-0.70); Eosinophils % (Auto) 0.4 % (0.0-7.0); Hematocrit 36.2 % (34.1-44.9); Hemoglobin 11.5 g/dL (11.2-15.7); Lymphocytes # (Auto) 1.44 K/mcL (1.50-4.80); Mean Cell Volume 93.3 fL (80.0-100.0); Mean Corpuscular HGB Conc 31.8 g/dL (31.0-36.0); Mean Platelet Volume 10.1 fL (8.8-12.5); Monocytes % (Auto) 10.4 % (1.0-12.0); Neutrophils % (Auto) 73.7 % (38.0-78.0); Platelet Count 160 K/mcL (140-440); RBC 3.88 M/mcL (3.59-5.38); Red Cell Distribution Width 15.4 % (11.5-14.5); WBC 9.6 K/mcL (4.5-11.0)
[2024-10-17 05:58] LABS: ALT/SGPT 15 U/L (<40); AST/SGOT 15 U/L (<32); Albumin 3.3 gm/dL (3.2-5.2); Albumin/Globulin Ratio 1.2 (1.0-2.3); Alkaline Phosphatase 83 U/L (39-117); Bilirubin,Direct 0.5 mg/dL (<0.3); Bilirubin,Total 0.9 mg/dL (0.1-1.0); Blood Urea Nitrogen 70 mg/dL (8-23); Calcium 9.2 mg/dL (8.6-10.4); Carbon Dioxide 23 mmol/L (22-30); Chloride 104 mmol/L (96-108); Globulin 2.7 gm/dL (2.2-3.7); Glomerular Filtration Rate 22; Glucose 132 mg/dL (70-105); Lactate Dehydrogenase 177 U/L (135-225); Sodium 141 mmol/L (133-145); Triglycerides 76 mg/dL (<150); Uric Acid 12.1 mg/dL (2.5-8.0)
[2024-10-17] MEDS: PANTOPRAZOLE 40 MG TABLET PO SCH (17:14)
[2024-10-17] MEDS: FERROUS SULFATE 325 MG TABLET PO SCH (17:14)
[2024-10-17] MEDS ORDERED: DOXYCYCLINE HYCLATE 100 MG TABLET.ORL PO SCH (21:00)
[2024-10-17] MEDS: TORSEMIDE 20 MG TABLET PO SCH (21:59)
[2024-10-17] MEDS: SIMVASTATIN 20 MG TABLET PO SCH (21:59)
[2024-10-17] MEDS: APIXABAN 2.5 MG TABLET PO SCH (21:59)
[2024-10-18] MEDS: METOPROLOL SUCCINATE 50 MG TAB.XL.24H PO SCH (08:25)
[2024-10-18] MEDS: METOLAZONE 2.5 MG TABLET PO SCH (08:29)
[2024-10-18] MEDS: LEVOFLOXACIN 750 MG TABLET PO SCH (08:29)
[2024-10-19 06:19] LABS: Basophils # (Auto) 0.03 K/mcL (0.00-0.30); Basophils % (Auto) 0.4 % (0.0-2.0); Eosinophils # (Auto) 0.06 K/mcL (0.00-0.70); Eosinophils % (Auto) 0.8 % (0.0-7.0); Hematocrit 35.3 % (34.1-44.9); Hemoglobin 11.2 g/dL (11.2-15.7); Lymphocytes # (Auto) 1.66 K/mcL (1.50-4.80); Lymphocytes % (Auto) 20.9 % (15.5-49.0); Mean Cell Volume 93.6 fL (80.0-100.0); Mean Corpuscular HGB Conc 31.7 g/dL (31.0-36.0); Mean Platelet Volume 10.4 fL (8.8-12.5); Monocytes # (Auto) 0.99 K/mcL (0.10-0.90); Monocytes % (Auto) 12.4 % (1.0-12.0); Neutrophils % (Auto) 65.2 % (38.0-78.0); Platelet Count 156 K/mcL (140-440); RBC 3.77 M/mcL (3.59-5.38); Red Cell Distribution Width 14.7 % (11.5-14.5)
[2024-10-19 06:49] LABS: Blood Urea Nitrogen 75 mg/dL (8-23); Calcium 9.1 mg/dL (8.6-10.4); Carbon Dioxide 26 mmol/L (22-30); Chloride 99 mmol/L (96-108); Glomerular Filtration Rate 18; Glucose 134 mg/dL (70-105); Potassium 3.3 mmol/L (3.3-5.1); Sodium 139 mmol/L (133-145)
[2024-10-19] MEDS: LACTATED RINGERS 1,000 ML IV SCH (15:12)
[2024-10-19] MEDS: AMOXICILLIN/POTASSIUM CLAV 875 MG TABLET PO SCH (17:16)
[2024-10-20 06:55] LABS: Basophils # (Auto) 0.02 K/mcL (0.00-0.30); Basophils % (Auto) 0.2 % (0.0-2.0); Eosinophils # (Auto) 0.13 K/mcL (0.00-0.70); Eosinophils % (Auto) 1.6 % (0.0-7.0); Hemoglobin 11.6 g/dL (11.2-15.7); Lymphocytes # (Auto) 1.83 K/mcL (1.50-4.80); Mean Cell Volume 92.8 fL (80.0-100.0); Mean Corpuscular HGB Conc 32.2 g/dL (31.0-36.0); Mean Platelet Volume 10.6 fL (8.8-12.5); Monocytes # (Auto) 0.99 K/mcL (0.10-0.90); Monocytes % (Auto) 11.9 % (1.0-12.0); Neutrophils % (Auto) 64.1 % (38.0-78.0); Platelet Count 178 K/mcL (140-440); RBC 3.88 M/mcL (3.59-5.38); Red Cell Distribution Width 14.6 % (11.5-14.5); WBC 8.3 K/mcL (4.5-11.0)
[2024-10-20 07:01] LABS: Blood Urea Nitrogen 79 mg/dL (8-23); Calcium 9.4 mg/dL (8.6-10.4); Carbon Dioxide 28 mmol/L (22-30); Chloride 97 mmol/L (96-108); Glomerular Filtration Rate 17; Glucose 117 mg/dL (70-105); Potassium 3.1 mmol/L (3.3-5.1); Sodium 140 mmol/L (133-145)
[2024-10-20] MEDS: LACTATED RINGERS 1,000 ML IV SCH (08:14)
[2024-10-20] MEDS: POTASSIUM CHLORIDE 20 MEQ TABLET PO ONE (08:24)
[2024-10-20] MEDS: LEVOFLOXACIN 250 MG TABLET PO SCH (09:18)
[2024-10-20 16:53] LABS: Blood Urea Nitrogen 83 mg/dL (8-23); Calcium 9.5 mg/dL (8.6-10.4); Carbon Dioxide 28 mmol/L (22-30); Chloride 95 mmol/L (96-108); Glomerular Filtration Rate 15; Glucose 142 mg/dL (70-105); Potassium 3.8 mmol/L (3.3-5.1); Sodium 138 mmol/L (133-145)
[2024-10-21 06:29] LABS: Basophils # (Auto) 0.02 K/mcL (0.00-0.30); Basophils % (Auto) 0.2 % (0.0-2.0); Eosinophils # (Auto) 0.16 K/mcL (0.00-0.70); Hematocrit 37.1 % (34.1-44.9); Hemoglobin 11.8 g/dL (11.2-15.7); Lymphocytes % (Auto) 19.9 % (15.5-49.0); Mean Cell Volume 91.8 fL (80.0-100.0); Mean Corpuscular HGB Conc 31.8 g/dL (31.0-36.0); Mean Platelet Volume 10.5 fL (8.8-12.5); Monocytes # (Auto) 0.82 K/mcL (0.10-0.90); Monocytes % (Auto) 10.2 % (1.0-12.0); Neutrophils % (Auto) 67.3 % (38.0-78.0); Platelet Count 183 K/mcL (140-440); RBC 4.04 M/mcL (3.59-5.38); Red Cell Distribution Width 14.4 % (11.5-14.5)
[2024-10-21 07:15] LABS: Blood Urea Nitrogen 85 mg/dL (8-23); Calcium 9.3 mg/dL (8.6-10.4); Carbon Dioxide 28 mmol/L (22-30); Chloride 94 mmol/L (96-108); Glomerular Filtration Rate 15; Glucose 137 mg/dL (70-105); Potassium 3.5 mmol/L (3.3-5.1); Sodium 138 mmol/L (133-145)
[2024-10-21 11:22] VITALS: TEMP 97.7; O2SAT 100
[2024-10-22] MEDS ORDERED: LOSARTAN 25 MG TABLET PO SCH (09:00)
== END 2024-10-21 13:44 | DRG 690 ==
LOC: MEDSUR 11:20 → ED 11:20 → MEDSUR 20:40
PROVIDERS: ADMIT Internal Medicine; ATTEND Student in an Organized Health Care Education/Training Program